=== PATIENT | male | born 1990 | race Caucasian/White ===

== ENCOUNTER 2021-12-05 20:44 | Emergency (ER) | payer OTHER ==
[2021-12-05 21:26] VITALS: BP 99/54; PULSE 84; RESP 20; TEMP 98.2; BMI 24.3
[2021-12-06] MEDS ORDERED: ACETAMINOPHEN 500 MG TABLET (FP) PO ONE (00:31)
[2021-12-06] MEDS ORDERED: ACETAMINOPHEN 500 MG TABLET (FP) ONE (00:32)
[2021-12-06] MEDS ORDERED: KETOROLAC TROMETHAMINE 30 MG/1 ML VIAL IM ONE (02:10)
[2021-12-06] MEDS ORDERED: KETOROLAC TROMETHAMINE 30 MG/1 ML VIAL ONE (02:10)
== END 2021-12-06 02:30 | disposition home or self-care (01) ==
LOC: JERFT 20:44
PROC: 3E0233Z Introduction of Anti-inflammatory into Muscle, Percutaneous Approach (ICD-10-PCS; principal; 2021-12-05)
DX: S09.90XA Unspecified injury of head, initial encounter (principal); M25.512 Pain in left shoulder; W22.8XXA Striking against or struck by other objects, initial encounter
CPT/HCPCS: 70450-TC; 72125-TC; 73030-TC-LT-FY; 99285-25